=== PATIENT | female | born 1995 | race Caucasian/White ===

== ENCOUNTER → 2017-12-20 | Emergency (ER) | payer OTHER ==
[~2017-12-20] VITALS: Ht 170.1 cm; Wt 63.5 kg
[~2017-12-20] MED LIST: MOTRIN800 MG PO; PNV PRENATAL HE1 TAB PO; TRAMADOL HCL50 MG PO
== END ==
LOC: ED 20:32
DX: S61.412A Laceration without foreign body of left hand, initial encounter (principal); F17.200 Nicotine dependence, unspecified, uncomplicated; Z79.899 Other long term (current) drug therapy; W26.0XXA Contact with knife, initial encounter; Y93.89 Activity, other specified; Y92.89 Other specified places as the place of occurrence of the external cause; Y99.8 Other external cause status

== ENCOUNTER 2019-08-16 01:51 | Emergency (ER) | payer OTHER ==
[~2019-08-16] VITALS: Ht 170.1 cm; Wt 65.8 kg
[2019-08-16] MEDS ORDERED: KEFLEX500 M1 PO (03:07)
[2019-08-16] MEDS ORDERED: ROBITUSSIN DM 105 ML PO (03:07)
[2019-08-16] MEDS ORDERED: MULTI-VITAMIN1 EACH PO (03:11)
[2019-08-16] MEDS ORDERED: DIFLUCAN150 MG PO (03:12)
== END 2019-08-16 03:24 | disposition home or self-care (01) ==
LOC: ED 01:51
DX: J20.9 Acute bronchitis, unspecified (principal); J02.9 Acute pharyngitis, unspecified; F17.200 Nicotine dependence, unspecified, uncomplicated; Z71.6 Tobacco abuse counseling

== ENCOUNTER 2021-06-05 20:55 | Emergency (ER) | payer OTHER ==
[~2021-06-05 20:55] MED LIST changes: +DIFLUCAN150 MG PO; +KEFLEX500 M1 PO; +MULTI-VITAMIN1 EACH PO; +ROBITUSSIN DM 105 ML PO
== END 2021-06-05 22:46 | disposition home or self-care (01) ==
LOC: ED 20:55
DX: T78.40XA Allergy, unspecified, initial encounter (principal); X58.XXXA Exposure to other specified factors, initial encounter

== ENCOUNTER 2021-11-23 13:38 | Emergency (ER) | payer OTHER ==
[~2021-11-23] VITALS: Wt 62.6 kg
[2021-11-23] MEDS ORDERED: PROVENTIL HFA6.7 GM INH (17:10)
[2021-11-23] MEDS ORDERED: ZITHROMAX250 MG PO (17:10)
[2021-11-23] MEDS ORDERED: PREDNISONE20 M1 PO (17:10)
== END 2021-11-23 17:19 | disposition home or self-care (01) ==
LOC: ED 13:38
DX: J18.9 Pneumonia, unspecified organism (principal); Z20.822 Contact with and (suspected) exposure to COVID-19